=== PATIENT | male | born 1960 | race Caucasian/White ===

== ENCOUNTER → 2016-04-06 | Outpatient (CLI) | payer OTHER | LOC: RAD 09:34 | PROVIDERS: ATTEND Urology | DX: E27.9 Disorder of adrenal gland, unspecified (principal) | CPT/HCPCS: 74150 ==

== ENCOUNTER → 2016-04-30 | Outpatient (CLI) | payer OTHER | LOC: RAD 19:35 | PROVIDERS: ATTEND Internal Medicine | DX: M54.5 Low back pain (principal); M48.00 Spinal stenosis, site unspecified | CPT/HCPCS: 72148 ==

== ENCOUNTER → 2016-10-18 | Outpatient (CLI) | payer MEDICAID, OTHER ==
--- NOTE | 2016-10-18 11:45 | RADIOLOGY REPORT (SQ) ---
EXAM DESCRIPTION: U/S ABDOMEN LTD W/DOPPLER COMPLETED DATE/TIME: 10/18/2016 8:52 am REASON FOR STUDY: CIRRHOSIS (K74.69) K74.69 OTHER CIRRHOSIS OF LIVER COMPARISON: None. TECHNIQUE: Dynamic and static grayscale images acquired of the abdomen and recorded on PACS. Additio nal selected color Doppler and spectral images recorded. LIMITATIONS: None. FINDINGS: PANCREAS: Poorly seen. LIVER: 15.2 cm. Normal echotexture. LIVER VASCULATURE: Normal directional flow of the main portal vein and hepatic veins. GALLBLADDER: No stones. Normal wall thickness. No pericholecystic fluid. ULTRASOUND-DETECTED HENDRICKSON'S SIGN: Negative. INTRAHEPATIC DUCTS AND COMMON DUCT: Common bile duct is borderline at 6.5 mm. There is no intrahepat ic ductal dilatation. INFERIOR VENA CAVA: Normal flow. AORTA: No aneurysm. The midportion of the aorta was obscured by gas. RIGHT KIDNEY: There is thinning of the renal cortex. No stones are present. PERITONEAL AND RIGHT PLEURAL SPACE: A small right pleural effusion is present. OTHER: No other significant findings. IMPRESSION: 1. Borderline common bile duct. Is there clinical evidence of biliary obstruction? 2. There is a small right pleural effusion. 3. There is cortical thinning in right kidney. TECHNICAL DOCUMENTATION: JOB ID: [id number] All Rights Reserved
== END ==
LOC: RAD 07:58
PROVIDERS: ATTEND Specialist
DX: K74.69 Other cirrhosis of liver (principal); J90 Pleural effusion, not elsewhere classified
CPT/HCPCS: 76705; 93976